=== PATIENT | female | born 1955 | race Caucasian/White ===

== ENCOUNTER 2022-04-02 05:06 | Emergency (ER) | payer OTHER ==
[~2022-04-02] VITALS: Ht 170.2 cm; Wt 90.7 kg
[2022-04-02 05:12] VITALS: BP 160/85
[2022-04-02] MEDS ORDERED: PRED20TA3 PO (05:49)
[2022-04-02] MEDS ORDERED: GABA300C PO (05:49)
[2022-04-02] MEDS ORDERED: IBUP-1493 PO (05:49)
[2022-04-02] MEDS ORDERED: MORPHINE 2 MG SYG IM ONE (06:00)
== END 2022-04-02 06:12 | disposition home or self-care (01) ==
LOC: EDH 05:06
DX: M54.42 Lumbago with sciatica, left side (principal); Z88.0 Allergy status to penicillin; I10 Essential (primary) hypertension; Z90.89 Acquired absence of other organs; Z98.890 Other specified postprocedural states
CPT/HCPCS: 96372

== ENCOUNTER 2022-04-04 10:57 | Emergency (ER) | payer OTHER ==
[~2022-04-04] VITALS: Ht 167.6 cm; Wt 95.3 kg
[~2022-04-04 10:57] MED LIST: GABA300C PO; IBUP-1493 PO; PRED20TA3 PO
[2022-04-04] MEDS ORDERED: ORPHENADRINE CITRATE 30 MG/ML ML IM ONE (12:30)
[2022-04-04] MEDS ORDERED: KETOROLAC 30MG VIAL (30MG/ML) IM ONE (12:30)
[2022-04-04 13:18] VITALS: BP 152/84
== END 2022-04-04 13:20 | disposition home or self-care (01) ==
LOC: EDH 10:57
DX: M54.42 Lumbago with sciatica, left side (principal); I10 Essential (primary) hypertension; Z88.0 Allergy status to penicillin; Z79.52 Long term (current) use of systemic steroids; Z79.1 Long term (current) use of non-steroidal anti-inflammatories (NSAID); Z79.899 Other long term (current) drug therapy; Z90.89 Acquired absence of other organs
CPT/HCPCS: 99284; 96372 ×2; J1885; J2360

== ENCOUNTER 2022-04-15 02:46 | Emergency (ER) | payer OTHER ==
[~2022-04-15] VITALS: Ht 167.6 cm; Wt 96.2 kg
[2022-04-15 02:55] VITALS: BP 174/90
[2022-04-15] MEDS ORDERED: LIDOP TD (03:14)
[2022-04-15] MEDS ORDERED: IBUP-1493 PO (03:14)
[2022-04-15] MEDS ORDERED: CYCL-309 PO (03:14)
[2022-04-15] MEDS ORDERED: GABA300C PO (03:14)
[2022-04-15] MEDS ORDERED: HYDROMORPHONE 0.5 MG SYG (0.5MG/0.5ML) IM ONE (03:30)
[2022-04-15] MEDS ORDERED: GABAPENTIN 300 MG CAPSULE PO SCH (03:30)
[2022-04-15] MEDS ORDERED: CYCLOBENZAPRINE HCL 10 MG TABLET PO ONE (03:30)
[2022-04-16] MEDS ORDERED: HYDR25TA PO (10:11)
[2022-04-16] MEDS ORDERED: LOSA100T58 PO (10:11)
[2022-04-17] MEDS ORDERED: CEFAZOLIN SODIUM 1 GM VIAL ONE (04:57)
[2022-04-17] MEDS ORDERED: MORPHINE PF 100MG/10ML AMP IV ONE (04:57)
[2022-04-17] MEDS ORDERED: THROMBIN-JMI 20000 UNIT KIT TP ONE (04:58)
== END 2022-04-15 03:50 | disposition home or self-care (01) ==
LOC: EDH 02:46
DX: M54.32 Sciatica, left side (principal); I10 Essential (primary) hypertension; Z88.1 Allergy status to other antibiotic agents; Z98.890 Other specified postprocedural states; Z79.899 Other long term (current) drug therapy
CPT/HCPCS: 99283; 96372; J1170

== ENCOUNTER 2022-04-17 05:46 | Observation (INO) | payer MEDICARE, OTHER ==
[2022-04-16 09:44] LABS: BASOPHILS % (AUTO) 0.8 % (0.0-5.0); EOSINOPHILS % (AUTO) 4.4 % (0.0-8.0); HEMATOCRIT 37.8 % (36-48); LYMPHOCYTES % (AUTO) 20.7 % (21.0-51.0); MEAN CORPUSCULAR HEMOGLOBIN 29.2 pg (27.0-33.0); MEAN CORPUSCULAR HGB CONC 33.3 g/dL (32.0-36.0); MEAN CORPUSCULAR VOLUME 87.5 fL (79-99); NEUTROPHILS % (AUTO) 64.4 % (40.0-77.0); PLATELET COUNT (AUTO) 330 K/uL (130-400); RED BLOOD CELL COUNT(AUTO) 4.32 MIL/uL (4.00-5.50); RED CELL DISTRIBUTION WIDTH 12.4 % (11.0-15.5); WHITE BLOOD COUNT (AUTO) 8.8 K/uL (4.8-10.8)
[2022-04-16 09:51] LABS: CREATININE 0.8 mg/dL (0.5-1.5); POTASSIUM 3.9 mmol/L (3.5-5.1)
[2022-04-16 10:07] VITALS: BP 187/89
[~2022-04-17] VITALS: Ht 168.9 cm; Wt 100.7 kg
[2022-04-17] VITALS (26 sets, daily range): BP systolic 121–171; BP diastolic 66–92
[~2022-04-17 05:46] MED LIST changes: +CYCL-309 PO; +HYDR25TA PO; +LOSA100T58 PO; -PRED20TA3 PO
[2022-04-17] MEDS ORDERED: CLINDAMYCIN IVPB 900MG/50ML 50 ML IV SCH (06:00)
[2022-04-17] MEDS ORDERED: LACTATED RINGERS 1000ML 1,000 ML IV ONE (06:09)
[2022-04-17] MEDS ORDERED: SUCCINYLCHOLINE CHLORIDE 20 MG/ML 10 ML VIAL ONE (06:42)
[2022-04-17] MEDS ORDERED: LIDOCAINE PF 100MG/5ML (2%) SYRINGE 5ML ONE (06:42)
[2022-04-17] MEDS ORDERED: DEXAMETHASONE SOD PHOSPHATE 10MG/ML 1ML VIAL ONE ×2 (06:42→06:48)
[2022-04-17] MEDS ORDERED: MIDAZOLAM HCL 1 MG/ML 2ML VIAL ONE (06:42)
[2022-04-17] MEDS ORDERED: GLYCOPYRROLATE 1 MG/5 ML SYRINGE ONE (06:42)
[2022-04-17] MEDS ORDERED: PROPOFOL 10 MG/ML 20ML VIAL IV ONE (06:42)
[2022-04-17] MEDS ORDERED: NEOSTIGMINE 5MG/5ML SYR IV ONE (06:43)
[2022-04-17] MEDS ORDERED: ONDANSETRON 4MG INJ ONE ×2 (06:43→10:00)
[2022-04-17] MEDS ORDERED: FENTANYL CITRATE PF 50 MCG/1 ML 2ML VIAL ONE ×2 (06:43→08:40)
[2022-04-17] MEDS ORDERED: ROCURONIUM 10MG/1ML SYR 10 MG/ML ML ONE ×2 (06:43→08:28)
[2022-04-17] MEDS ORDERED: ARTIFICIAL TEARS 3.5 GM OINTMENT ONE (06:47)
[2022-04-17] MEDS ORDERED: MORPHINE PF 100MG/10ML AMP IV ONE (07:00)
[2022-04-17] MEDS ORDERED: THROMBIN-JMI 20000 UNIT KIT TP ONE (07:00)
[2022-04-17] MEDS ORDERED: BUPIVACAINE/EPI/PF 0.25% 30ML VIAL IJ SCH (07:30)
[2022-04-17] MEDS ORDERED: MORPHINE 2 MG SYG IVP PRN (10:30)
[2022-04-17] MEDS ORDERED: LACTATED RINGERS 1000ML 1,000 ML IV SCH (10:30)
[2022-04-17] MEDS ORDERED: PROMETHAZINE HCL 25 MG/ML 1ML AMPULE IM PRN (10:30)
[2022-04-17] MEDS ORDERED: HYDROCODONE/ACETAMINOPHEN 5/325 MG TAB PO PRN (10:30)
[2022-04-17] MEDS ORDERED: 0.9%NACL 10ML VIAL IVP PRN (10:30)
[2022-04-17] MEDS: DEXAMETHASONE SOD PHOSPHATE 4 MG/ML 1ML VIAL IVP SCH ×3 (11:41→21:31)
[2022-04-17] MEDS: IBUPROFEN 800 MG TAB PO SCH ×2 (14:23→21:31)
[2022-04-17] MEDS: CYCLOBENZAPRINE HCL 10 MG TABLET PO SCH ×2 (14:23→21:31)
[2022-04-17] MEDS: GABAPENTIN 300 MG CAPSULE PO SCH ×2 (14:23→21:31)
[2022-04-17] MEDS: CLINDAMYCIN IVPB 900MG/50ML 50 ML IV SCH (18:47)
[2022-04-18] MEDS: CLINDAMYCIN IVPB 900MG/50ML 50 ML IV SCH (02:22)
[2022-04-18] MEDS: DEXAMETHASONE SOD PHOSPHATE 4 MG/ML 1ML VIAL IVP SCH (04:08)
[2022-04-18 04:27] VITALS: BP 150/80
[2022-04-18 07:54] VITALS: BP 158/87
[2022-04-18] MEDS: GABAPENTIN 300 MG CAPSULE PO SCH (08:54)
[2022-04-18] MEDS: CYCLOBENZAPRINE HCL 10 MG TABLET PO SCH (08:54)
[2022-04-18] MEDS: IBUPROFEN 800 MG TAB PO SCH (08:54)
[2022-04-18] MEDS ORDERED: HYDROCHLOROTHIAZIDE 25 MG TABLET PO SCH (09:00)
[2022-04-18] MEDS ORDERED: LOSARTAN 100 MG TABLET PO SCH (09:00)
[2022-04-18 11:25] VITALS: BP 155/90
== END 2022-04-18 11:00 | disposition home or self-care (01) ==
LOC: DAH 05:46 → DAHIP 05:47 → DAH 05:47 → EDSTATUS 08:58 → 4DH 11:59
PROVIDERS: ADMIT Neurological Surgery; ATTEND Neurological Surgery
DX: M48.061 Spinal stenosis, lumbar region without neurogenic claudication (principal); Z20.822 Contact with and (suspected) exposure to COVID-19; M67.48 Ganglion, other site; I10 Essential (primary) hypertension; M54.16 Radiculopathy, lumbar region; M24.28 Disorder of ligament, vertebrae; J44.9 Chronic obstructive pulmonary disease, unspecified; Z88.0 Allergy status to penicillin; Z79.899 Other long term (current) drug therapy
CPT/HCPCS: 80048; 85025; 87426; 36415; 71045; 63047; 63048 ×2; 96376 ×2; 96365; 96375; 72020; 96366; A6260; J1100 ×6; G0378 ×24; A4663; J7120 ×4; A4344; J3010 ×2; J3490 ×7; J2710; J0330; J2001; J2250; J2704; J2274; J2405 ×2; A4649 ×3; A4215; A4223; A4222; A4221; A4600; A4510